=== PATIENT | female | born 1965 | race Caucasian/White ===

== ENCOUNTER 2017-05-20 13:43 | Emergency (ER) | payer MEDICAID ==
[~2017-05-20] VITALS: Ht 165.1 cm; Wt 47.6 kg
--- NOTE | 2017-05-20 13:57 | NUR ---
[facility] ACCOMPANIED BY [facility] FOR DUE TO PSYCHE EVAL. PATIENT RECEIVED ON 5150 HOLD, PER REPORT PATIENT WAS HEARING VOICES THAT'D TELLING HER TO KILL HERSELF, PATIENT ALSO STATED THAT [employer] ARE AFTER HER. PATIENT RECEIVED AAO3. APPEARS IN NO APPARENT DISTRESS. NO SPECIFIC SUICIDAL PLAN AT THIS TIME. VSS
--- NOTE | 2017-05-20 14:00 | NUR ---
MD DOMINGUEZ AT
[2017-05-20 14:10] LABS: BASOPHILS % (AUTO) 0.5 % (0.0-2.0); EOSINOPHILS # (AUTO) 0.1 /CMM (0.0-0.7); EOSINOPHILS % (AUTO) 0.7 % (0.0-6.0); HEMATOCRIT 45 % (33-45); HEMOGLOBIN 14.9 g/dL (11.5-14.8); LYMPHOCYTES # (AUTO) 1.1 /CMM (0.8-4.8); LYMPHOCYTES % (AUTO) 10.9 % (20.0-44.0); MEAN CORPUSCULAR HEMOGLOBIN 31 PG (26.0-33.0); MEAN CORPUSCULAR HGB CONC 33 g/dl (31.0-36.0); MEAN CORPUSCULAR VOLUME 93 fL (82-100); MONOCYTES # (AUTO) 0.3 /CMM (0.1-1.30); MONOCYTES % (AUTO) 3.1 % (2.0-12.0); NEUTROPHILS # (AUTO) 8.3 /CMM (1.8-8.9); NEUTROPHILS % (AUTO) 84.8 % (43.0-81.0); PLATELET COUNT (AUTO) 364 /CMM (150-450); RDW COEFFICIENT OF VARIATION 12.6 (11.5-15.0); RED BLOOD CELL COUNT(AUTO) 4.81 MIL/uL (4.0-5.2); WHITE BLOOD COUNT (AUTO) 9.8 K/uL (4.3-11.0)
[2017-05-20 14:25] LABS: CARBON DIOXIDE 27 mmol/L (21-32); CHLORIDE 107 mmol/L (98-107); CREATININE 0.7 mg/dL (0.6-1.3); GLUCOSE 98 mg/dL (74-106); SODIUM SERUM 143 mmol/L (136-145); UREA NITROGEN, BLOOD 10 mg/dL (7-18)
[2017-05-20 14:29] LABS: ACETAMINOPHEN 0 ug/ml (10-30); ALCOHOL, BLOOD < 3 mg/dL (0-0); SALICYLATE 1.2 mg/dL (2.8-20.0)
[2017-05-20 14:34] LABS: TROPONIN I 0.018 ng/mL (0.00-0.056)
[2017-05-20 14:59] LABS: THYROID STIMULATING HORMONE 1.747 uIU/mL (0.358-3.74)
[2017-05-20] MEDS ORDERED: POTASSIUM CHLORIDE 20 MEQ TAB.PRT.SR PO ONE ×2 (15:00→15:12)
[2017-05-20 15:43] LABS: APPEARANCE,URINE CLEAR (CLEAR); BILIRUBIN,URINE NEGATIVE (NEGATIVE); BLOOD, URINE TRACE-INTA Ery/uL (NEGATIVE); COLOR,URINE YELLOW (YELLOW); KETONES,URINE NEGATIVE (NEGATIVE); LEUKOCYTE ESTERASE ,URINE NEGATIVE (NEGATIVE); NITRITE, URINE NEGATIVE (NEGATIVE); PH,URINE 6.5 (5.0-8.0); PROTEIN,URINE NEGATIVE (NEGATIVE); UGLUCOSE NEGATIVE (NEGATIVE); UROBILINOGEN,URINE 0.2 EU/dL (0.2)
[2017-05-20 18:05] LABS: BACTERIA,URINE Few /HPF (None Seen); SQUAMOUS EPITHELIAL CELL,UR Rare /HPF (None Seen); WBC,URINE 0-2 /HPF (0-3)
--- NOTE | 2017-05-20 19:49 | NUR ---
Patient is resting comfortably in bed with eyes closed. Easily aroused. VSS
--- NOTE | 2017-05-20 21:07 | NUR ---
CALLED [facility], ETA 35 MIN
[2017-05-20 21:40] VITALS: BP 120/78
--- NOTE | 2017-05-20 21:40 | NUR ---
PATIENT TRANSPORTED TO [facility]. S
== END 2017-05-20 21:42 | disposition home or self-care (01) ==
LOC: ER 13:45
DX: F29 Unspecified psychosis not due to a substance or known physiological condition (principal); R94.6 Abnormal results of thyroid function studies
CPT/HCPCS: 36415; 80048; 80305; 80329; 81001; 84443; 84484; 85025; 93005; 99285; A4606; G0480 ×2; Z7610; 81000-TC

== ENCOUNTER 2018-03-08 23:15 | Emergency (ER) | payer MEDICAID ==
[~2018-03-08] VITALS: Ht 165.1 cm; Wt 47.6 kg
[2018-03-09 00:44] VITALS: BP 136/87
== END 2018-03-09 00:45 | disposition home or self-care (01) ==
LOC: ER 23:17
DX: T65.891A Toxic effect of other specified substances, accidental (unintentional), initial encounter (principal); R51 Headache; Y92.89 Other specified places as the place of occurrence of the external cause; Z91.040 Latex allergy status
CPT/HCPCS: 99283; A4606; Z7610